=== PATIENT | female | born 1965 | race Hispanic/Latino ===

== ENCOUNTER 2021-06-09 16:16 | Inpatient (IN) | payer OTHER ==
[~2021-06-09] VITALS: Ht 157.5 cm; Wt 82.6 kg
[2021-06-09] MEDS ORDERED: ONDANSETRON HCL INJ 2MG/ML 2ML 2 MG/ML VIAL IV STA (16:28)
[2021-06-09] MEDS ORDERED: DICYCLOMINE HCL 20 MG/2 ML VIAL IM ONE (16:30)
[2021-06-09 16:52] LABS: BASOPHILS # (AUTO) 0.1 (0.0-0.1); BASOPHILS % 0.9 % (0.0-1.0); EOSINOPHILS # (AUTO) 0.9 (0.0-0.4); EOSINOPHILS % 9.9 % (0.0-6.0); HEMATOCRIT 42.1 % (34.2-44.1); HEMOGLOBIN 13.3 g/dL (12.0-16.0); LYMPHOCYTES # (AUTO) 1.6 (1.0-3.2); LYMPHOCYTES % 17.1 % (18.0-39.1); MEAN CORPUSCULAR HEMOGLOBIN 30.9 pg (28-32); MEAN CORPUSCULAR HGB CONC 31.6 g/dL (31-35); MEAN CORPUSCULAR VOLUME 97.9 fL (81-99); MONOCYTES # (AUTO) 1.2 (0.2-0.8); MONOCYTES % 13.2 % (4.4-11.3); NEUTROPHILS # (AUTO) 5.3 (2.1-6.9); NEUTROPHILS % 55.9 % (38.7-80.0); PLATELET COUNT 272 x10e3/uL (140-360); RED CELL DISTRIBUTION WIDTH 13.1 % (11.7-14.4)
[2021-06-09 17:01] LABS: INR 0.88; PARTIAL THROMBOPLASTIN TIME 27.5 seconds (23.8-35.5); PROTHROMBIN TIME 12.8 seconds (11.9-14.5)
[2021-06-09 17:08] LABS: ALBUMIN 2.8 g/dL (3.5-5.0); ALBUMIN/GLOBULIN RATIO 0.7 (0.8-2.0); ANION GAP 12.2 mmol/L (8-16); CALCIUM 8.2 mg/dL (8.4-10.2); CREATININE, SERUM 5.16 mg/dL (0.57-1.11); POTASSIUM 4.2 mmol/L (3.5-5.1)
[2021-06-09 17:15] LABS: CREATINE KINASE MB 1.3 ng/mL (0-5.0)
[2021-06-09 17:23] LABS: CLARITY,URINE CLOUDY (CLEAR); COLOR,URINE YELLOW (YELLOW)
[2021-06-09 17:24] LABS: KETONES,URINE NEGATIVE (NEGATIVE); LEUKOCYTE ESTERASE ,URINE NEGATIVE (NEGATIVE); NITRITE,URINE NEGATIVE (NEGATIVE); PROTEIN,URINE DIPSTICK >=300 (NEGATIVE); URINE UROBILINOGEN 0.2 mg/dL (0.2 - 1)
[2021-06-09 17:41] LABS: WBC,URINE (MAN) 21-50 /HPF (0-5)
[2021-06-09 17:42] LABS: BACTERIA,URINE MANY /HPF; EPITHELIAL CELLS,URINE MANY /LPF
[2021-06-09 17:43] LABS: RENAL EPITHELIAL CELLS,URINE FEW; TRANSITIONAL EPI CELLS,URINE FEW
[2021-06-09] MEDS ORDERED: DEXTROSE 50% SYRINGE 50 ML IV PRN (18:15)
[2021-06-09] MEDS ORDERED: Morphine 4mg Syringe 4 MG/ML INJ IV PRN (18:15)
[2021-06-09] MEDS ORDERED: SODIUM CHLORIDE 0.9% 1000ML 1,000 ML IV ONE (18:15)
[2021-06-09] MEDS ORDERED: HYDRALAZINE HCL 20 MG/ML VIAL IV PRN (19:15)
[2021-06-09] MEDS ORDERED: CARVEDILOL25 MG PO (20:43)
[2021-06-09] MEDS ORDERED: GLIPIZIDE5 MG PO (20:43)
[2021-06-09] MEDS ORDERED: ATORVASTATIN CA40 MG PO (20:43)
[2021-06-09] MEDS ORDERED: MAGNESIUM OXID400 MG PO (20:43)
[2021-06-09] MEDS ORDERED: LISINOPRIL40 MG PO (20:43)
[2021-06-09] MEDS ORDERED: OS-CAL 500+D T1 EACH PO (20:43)
[2021-06-09] MEDS ORDERED: HYDRALAZINE HC100 MG PO (20:43)
[2021-06-09] MEDS ORDERED: SEVELAMER CARB800 MG PO (20:43)
[2021-06-09] MEDS ORDERED: MINOXIDIL2.5 MG PO (20:43)
[2021-06-09] MEDS ORDERED: SODIUM BICARBO650 MG PO (20:43)
[2021-06-09] MEDS ORDERED: FLUTICASONE PRO16 GM INH (20:45)
[2021-06-09] MEDS ORDERED: LACTULOSE10 GM/151 PO (20:45)
[2021-06-09] MEDS: INSULIN REGULAR, HUMAN 100 UNIT/1 ML SQ SCH (21:05)
[2021-06-09] MEDS: ONDANSETRON HCL INJ 2MG/ML 2ML 2 MG/ML VIAL IV PRN (21:06)
[2021-06-09 21:26] VITALS: BP 127/58
[2021-06-09] MEDS: HYDRALAZINE HCL 100 MG TABLET PO SCH (22:29)
[2021-06-09] MEDS: CARVEDILOL 3.125 MG TAB PO SCH (22:29)
[2021-06-09] MEDS: ATORVASTATIN 20 MG TAB PO SCH (22:30)
[2021-06-09 23:07] VITALS: BP 127/58
[2021-06-09 23:11] VITALS: BP 127/58
[2021-06-10] VITALS (7 sets, daily range): BP systolic 107–149; BP diastolic 55–88
[2021-06-10] MEDS ORDERED: METOCLOPRAMIDE HCL 10 MG/2ML VIAL IV ONE (04:00)
[2021-06-10] MEDS: METOCLOPRAMIDE HCL 10 MG/2ML VIAL IV SCH ×3 (04:53→17:53)
[2021-06-10 06:19] LABS: BASOPHILS # (AUTO) 0.1 (0.0-0.1); EOSINOPHILS # (AUTO) 1.2 (0.0-0.4); EOSINOPHILS % 11.4 % (0.0-6.0); HEMATOCRIT 39.9 % (34.2-44.1); HEMOGLOBIN 12.4 g/dL (12.0-16.0); LYMPHOCYTES # (AUTO) 1.8 (1.0-3.2); LYMPHOCYTES % 17.7 % (18.0-39.1); MEAN CORPUSCULAR HEMOGLOBIN 30.5 pg (28-32); MEAN CORPUSCULAR HGB CONC 31.1 g/dL (31-35); MEAN CORPUSCULAR VOLUME 98.3 fL (81-99); MONOCYTES # (AUTO) 1.6 (0.2-0.8); NEUTROPHILS # (AUTO) 5.3 (2.1-6.9); NEUTROPHILS % 51.3 % (38.7-80.0); PLATELET COUNT 271 x10e3/uL (140-360); RED BLOOD COUNT 4.06 x10e6/uL (3.6-5.1); RED CELL DISTRIBUTION WIDTH 13.2 % (11.7-14.4)
[2021-06-10 06:49] LABS: ALBUMIN 2.5 g/dL (3.5-5.0); ALBUMIN/GLOBULIN RATIO 0.7 (0.8-2.0); ANION GAP 13.5 mmol/L (8-16); CALCIUM 7.8 mg/dL (8.4-10.2); CREATININE, SERUM 5.61 mg/dL (0.57-1.11); POTASSIUM 4.5 mmol/L (3.5-5.1)
[2021-06-10 07:07] LABS: CHOL/HDL RATIO 2.4 (3.0-3.6)
[2021-06-10] MEDS ORDERED: LACTULOSE SYRUP 20 GM/30 ML UDC PO PRN (07:15)
[2021-06-10] MEDS: GLIPIZIDE 5 MG TAB PO SCH (07:30)
[2021-06-10] MEDS: INSULIN REGULAR, HUMAN 100 UNIT/1 ML SQ SCH ×4 (07:30→22:03)
[2021-06-10] MEDS: SEVELAMER CARBONATE 800 MG TAB PO SCH ×3 (09:00→17:53)
[2021-06-10] MEDS: SODIUM BICARBONATE 650 MG TAB PO SCH ×3 (09:00→20:33)
[2021-06-10] MEDS: HYDRALAZINE HCL 100 MG TABLET PO SCH ×3 (09:00→20:32)
[2021-06-10] MEDS: OYST-CAL-D 500MG TABLET PO SCH (09:00)
[2021-06-10] MEDS: LISINOPRIL 20 MG TAB PO SCH (09:00)
[2021-06-10] MEDS: MINOXIDIL 2.5 MG TAB PO SCH (09:00)
[2021-06-10] MEDS: ATORVASTATIN 40 MG TAB PO SCH (09:00)
[2021-06-10] MEDS: CARVEDILOL 3.125 MG TAB PO SCH ×2 (09:00→20:32)
[2021-06-10] MEDS: FLUTICASONE PROPIONATE NASAL SPRAY NS SCH (09:00)
[2021-06-10] MEDS ORDERED: SODIUM CHLORIDE 0.9% 1000ML 2,000 ML ONE (09:10)
[2021-06-10] MEDS ORDERED: SODIUM CHLORIDE 0.9% 1000ML 2,000 ML IV PRN ×2 (09:30→10:15)
[2021-06-10] MEDS ORDERED: HEPARIN SOD (PORCINE) 1000 UNIT/ML SDV IV PRN (10:15)
[2021-06-10] MEDS ORDERED: SODIUM CHLORIDE 0.9% 250ML 500 ML IV PRN (10:15)
[2021-06-10] MEDS ORDERED: SODIUM CHLORIDE 0.9% 250ML 250 ML ONE (15:07)
[2021-06-10] MEDS: ATORVASTATIN 20 MG TAB PO SCH (20:33)
[2021-06-11] VITALS (8 sets, daily range): BP systolic 117–159; BP diastolic 55–80
[2021-06-11] MEDS: METOCLOPRAMIDE HCL 10 MG/2ML VIAL IV SCH ×4 (01:20→18:00)
[2021-06-11] MEDS: INSULIN REGULAR, HUMAN 100 UNIT/1 ML SQ SCH ×4 (07:30→22:00)
[2021-06-11] MEDS: GLIPIZIDE 5 MG TAB PO SCH (07:30)
[2021-06-11] MEDS: LISINOPRIL 20 MG TAB PO SCH (08:54)
[2021-06-11] MEDS: SODIUM BICARBONATE 650 MG TAB PO SCH ×3 (08:54→22:00)
[2021-06-11] MEDS: SEVELAMER CARBONATE 800 MG TAB PO SCH ×3 (08:54→18:00)
[2021-06-11] MEDS: OYST-CAL-D 500MG TABLET PO SCH (08:54)
[2021-06-11] MEDS: HYDRALAZINE HCL 100 MG TABLET PO SCH ×3 (09:00→22:00)
[2021-06-11] MEDS: MINOXIDIL 2.5 MG TAB PO SCH (09:00)
[2021-06-11] MEDS: FLUTICASONE PROPIONATE NASAL SPRAY NS SCH (09:00)
[2021-06-11] MEDS: ATORVASTATIN 40 MG TAB PO SCH (09:00)
[2021-06-11] MEDS: CARVEDILOL 3.125 MG TAB PO SCH ×2 (12:36→22:00)
[2021-06-11] MEDS: ATORVASTATIN 20 MG TAB PO SCH (22:00)
[2021-06-12] VITALS: BP 111/60
[2021-06-12] MEDS: ONDANSETRON HCL INJ 2MG/ML 2ML 2 MG/ML VIAL IV PRN (01:39)
[2021-06-12 04:00] VITALS: BP 107/53
[2021-06-12] MEDS: INSULIN REGULAR, HUMAN 100 UNIT/1 ML SQ SCH ×2 (07:30→11:12)
[2021-06-12 08:00] VITALS: BP 143/64
[2021-06-12] MEDS: GLIPIZIDE 5 MG TAB PO SCH (08:51)
[2021-06-12] MEDS: CARVEDILOL 3.125 MG TAB PO SCH (08:58)
[2021-06-12] MEDS: FLUTICASONE PROPIONATE NASAL SPRAY NS SCH (08:58)
[2021-06-12] MEDS: MINOXIDIL 2.5 MG TAB PO SCH (08:58)
[2021-06-12] MEDS: HYDRALAZINE HCL 100 MG TABLET PO SCH (08:58)
[2021-06-12] MEDS: SEVELAMER CARBONATE 800 MG TAB PO SCH ×2 (08:59→12:42)
[2021-06-12] MEDS: OYST-CAL-D 500MG TABLET PO SCH (08:59)
[2021-06-12] MEDS: LISINOPRIL 20 MG TAB PO SCH (08:59)
[2021-06-12] MEDS: SODIUM BICARBONATE 650 MG TAB PO SCH (08:59)
[2021-06-12] MEDS ORDERED: PANTOPRAZOLE SO40 MG PO (09:56)
[2021-06-12 11:16] VITALS: BP 130/76
[2021-06-12] MEDS ORDERED: ONDANSETRON HCL 4 MG ORAL DISINTEGRATING TAB PO PRN (12:15)
[2021-06-12] MEDS ORDERED: PANTOPRAZOLE SOD 40 MG TABEC PO SCH (21:00)
== END 2021-06-12 13:41 | disposition home or self-care (01) | DRG 391 ==
LOC: ER 16:19 → ERHOLD 18:13 → MED/SURG 21:17
PROVIDERS: ADMIT Internal Medicine; ATTEND Internal Medicine
PROC: 5A1D70Z Performance of Urinary Filtration, Intermittent, Less than 6 Hours Per Day (ICD-10-PCS; principal; 2021-06-10)
DX: K29.90 Gastroduodenitis, unspecified, without bleeding (principal); K85.90 Acute pancreatitis without necrosis or infection, unspecified; N18.6 End stage renal disease; I12.0 Hypertensive chronic kidney disease with stage 5 chronic kidney disease or end stage renal disease; E11.9 Type 2 diabetes mellitus without complications; E11.22 Type 2 diabetes mellitus with diabetic chronic kidney disease; Z99.2 Dependence on renal dialysis; Z20.822 Contact with and (suspected) exposure to COVID-19; K29.70 Gastritis, unspecified, without bleeding; Z90.49 Acquired absence of other specified parts of digestive tract
CPT/HCPCS: 36415; 71045; 74177; 80053; 80061; 81001; 82150; 82550; 82553; 82948; 83690; 83880; 84484; 85025; 85610; 85730; 86705; 86706; 87086; 87340; 90962; 93005; 96372; 99284; J0360; J0500; J0696; J1817; J2270; J2405; J2765; J7030; J7050; U0002

== ENCOUNTER 2021-06-15 17:56 | Emergency (ER) | payer OTHER ==
[~2021-06-15] VITALS: Ht 157.5 cm; Wt 82.6 kg
[~2021-06-15 17:56] MED LIST: ATORVASTATIN CA40 MG PO; CARVEDILOL25 MG PO; FLUTICASONE PRO16 GM INH; GLIPIZIDE5 MG PO; HYDRALAZINE HC100 MG PO; LACTULOSE10 GM/151 PO; LISINOPRIL40 MG PO; MAGNESIUM OXID400 MG PO; MINOXIDIL2.5 MG PO; OS-CAL 500+D T1 EACH PO; PANTOPRAZOLE SO40 MG PO; SEVELAMER CARB800 MG PO; SODIUM BICARBO650 MG PO
[2021-06-15 19:27] LABS: BASOPHILS # (AUTO) 0.1 (0.0-0.1); BASOPHILS % 1.1 % (0.0-1.0); EOSINOPHILS # (AUTO) 1.1 (0.0-0.4); EOSINOPHILS % 10.1 % (0.0-6.0); HEMATOCRIT 37.5 % (34.2-44.1); HEMOGLOBIN 11.9 g/dL (12.0-16.0); LYMPHOCYTES # (AUTO) 1.9 (1.0-3.2); MEAN CORPUSCULAR HEMOGLOBIN 31.6 pg (28-32); MEAN CORPUSCULAR HGB CONC 31.7 g/dL (31-35); MEAN CORPUSCULAR VOLUME 99.7 fL (81-99); MONOCYTES # (AUTO) 1.2 (0.2-0.8); MONOCYTES % 10.8 % (4.4-11.3); NEUTROPHILS # (AUTO) 6.4 (2.1-6.9); NEUTROPHILS % 57.9 % (38.7-80.0); PLATELET COUNT 272 x10e3/uL (140-360); RED BLOOD COUNT 3.76 x10e6/uL (3.6-5.1); RED CELL DISTRIBUTION WIDTH 13.6 % (11.7-14.4)
[2021-06-15 19:50] LABS: ALBUMIN 2.8 g/dL (3.5-5.0); ALBUMIN/GLOBULIN RATIO 0.7 (0.8-2.0); ANION GAP 16.1 mmol/L (8-16); CALCIUM 7.3 mg/dL (8.4-10.2); CREATININE, SERUM 6.13 mg/dL (0.57-1.11); POTASSIUM 5.1 mmol/L (3.5-5.1)
[2021-06-15 19:57] LABS: CREATINE KINASE MB 1.2 ng/mL (0-5.0)
[2021-06-15] MEDS ORDERED: PROTONIX40 MG PO (20:12)
[2021-06-15 23:00] VITALS: BP 156/74
== END 2021-06-15 20:30 | disposition home or self-care (01) ==
LOC: ER 18:15
DX: E11.22 Type 2 diabetes mellitus with diabetic chronic kidney disease (principal); I12.0 Hypertensive chronic kidney disease with stage 5 chronic kidney disease or end stage renal disease; N18.6 End stage renal disease; Z99.2 Dependence on renal dialysis; I25.10 Atherosclerotic heart disease of native coronary artery without angina pectoris; E78.5 Hyperlipidemia, unspecified; Z88.8 Allergy status to other drugs, medicaments and biological substances; Z79.899 Other long term (current) drug therapy; Z79.84 Long term (current) use of oral hypoglycemic drugs
CPT/HCPCS: 36415; 71045; 80053; 82550; 82553; 83690; 83880; 84484; 85025; 85379; 93005; 99284